=== PATIENT | male | born 1945 | race Caucasian/White ===

== ENCOUNTER → 2020-06-06 | Outpatient (CLI) | payer OTHER ==
[~2020-06-06] MED LIST: CYCLOBENZAPRINE5 MG PO; LIPITOR40 MG PO; NEXIUM40 MG PO; NORCO 5-325 TA1 EACH PO; ZOFRAN4 MG SL
== END ==
LOC: MRI 10:51
PROVIDERS: ATTEND Internal Medicine
DX: M54.41 Lumbago with sciatica, right side (principal)
CPT/HCPCS: 72148